=== PATIENT | female | born 1960 | race Caucasian/White ===

== ENCOUNTER 2023-05-25 10:41 | Outpatient (CLI) | payer BC | END 2023-05-25 10:42 | disposition home or self-care (01) | LOC: NAV RAD 10:41 | PROVIDERS: ATTEND Student in an Organized Health Care Education/Training Program | DX: M54.50 Low back pain, unspecified (principal); M47.816 Spondylosis without myelopathy or radiculopathy, lumbar region; M47.817 Spondylosis without myelopathy or radiculopathy, lumbosacral region | CPT/HCPCS: 72100 ==

== ENCOUNTER 2023-11-08 13:18 | Outpatient (CLI) | payer BC | END 2023-11-08 13:19 | disposition home or self-care (01) | LOC: NAV RAD 13:18 | PROVIDERS: ATTEND Student in an Organized Health Care Education/Training Program | DX: Z01.818 Encounter for other preprocedural examination (principal); M17.12 Unilateral primary osteoarthritis, left knee | CPT/HCPCS: 71045 ==

== ENCOUNTER 2024-04-11 12:12 | Outpatient (CLI) | payer BC | END 2024-04-11 12:13 | disposition home or self-care (01) | LOC: NAV RAD 12:12 | PROVIDERS: ATTEND Physician Assistant Surgical | DX: M48.062 Spinal stenosis, lumbar region with neurogenic claudication (principal); M47.812 Spondylosis without myelopathy or radiculopathy, cervical region; Z98.890 Other specified postprocedural states | CPT/HCPCS: 72040; 72100 ==